=== PATIENT | female | born 1985 | race African-American/Black ===

== ENCOUNTER 2020-08-11 22:09 | Emergency (ER) | payer BC, MEDICAID ==
[~2020-08-11] VITALS: Ht 172.7 cm; Wt 90.0 kg
[2020-08-11] MEDS ORDERED: METHYLPREDNISOLONE SOD SUCC 125 MG/2 ML VIAL IM STA (22:53)
[2020-08-11] MEDS ORDERED: ALBUTEROL 6.7GM HFA INHALER ORI ONE (23:00)
[2020-08-12 01:15] VITALS: BP 135/75
== END 2020-08-12 01:16 | disposition home or self-care (01) ==
LOC: ER 22:09
DX: J45.909 Unspecified asthma, uncomplicated (principal)
CPT/HCPCS: 71045; 93005; 94640; 96372; 99283; J2930; Z7610